=== PATIENT | male | born 1980 | race Caucasian/White ===

== ENCOUNTER → 2018-05-12 08:22 | Outpatient (CLI) | payer OTHER, SELFPAY ==
--- NOTE | 2018-05-12 | DI.ECHO.S_ITS ---
[facility] +---------+ [facility] +---------+ : : [address] : : : : [id number] : : : : Phone: [phone]+ Echocardiogram Report + + :Name: MAXIMO LEE Study Date: 05/12/2018 Height: 70 in : :[facility] Exam Location: [facility] Weight: 220 lb : : Gender: Male BSA: 2.2 m2 : :: 1980 Age: 37 yrs BP: 120/85 mmHg: :Reason For Study: Chest pain/ History of aortic valve repair : : Performed By: Kathrine Page : :Referring: EMELY MASCORRO : + + Interpretation Summary The ejection fraction is estimated to be 60-65%. The aortic valve is bicuspid. There is no aortic valve stenosis. No aortic regurgitation is present. Procedure: A two-dimensional transthoracic echocardiogram with color flow and Doppler was performed. The study quality was technically adequate. There is no prior echocardiogram noted for this patient. The heart rate ranged between 44-62 bpm during the study. Left Ventricle: The left ventricle is normal in size, wall thickness, and systolic function without any focal wall motion abnormalities. The ejection fraction is estimated to be 60-65%. There are no focal wall motion abnormalities. Right Ventricle: The right ventricle is normal in size and function. Atria: Both atria are normal in size. There is no Doppler evidence for an interatrial shunt. Mitral Valve: There is a flat closure plane of the the mitral valve leaflets. There is trace mitral regurgitation. Aortic Valve: The aortic valve is bicuspid. The aortic valve opens well. There is no aortic valve stenosis. No aortic regurgitation is present. Tricuspid Valve: The tricuspid valve is normal in structure and function. There is a trace or physiologic amount of tricuspid regurgitation. Pulmonary artery pressures cannot be estimated because of the lack of a measurable TR jet velocity. Pulmonic Valve: The pulmonic valve is not well visualized. There is a trace or physiologic amount of pulmonic regurgitation. Great Vessels: The aortic root is mildly dilated. The ascending aorta is normal in size. The aortic arch is normal in size. The pulmonary artery is not well visualized, but is probably normal size. The IVC is of normal diameter and collapses greater than 50% with a sniff. This suggests a low right atrial pressure of 3 mm Hg. Pericardium/ Pleura There is no pericardial effusion. There is no pleural effusion. MMode/2D Measurements & Calculations LVIDd: 4.8 cm LVOT diam: 2.1 cm LVIDs: 3.1 cm Ao root diam: 3.9 cm FS: 35.7 % asc Aorta Diam: 3.0 cm EPSS: 0.16 cm Ao Arch Diam (Prox Trans): 3.1 cm IVSd: 0.79 cm LVPWd: 0.91 cm LV burton. diameter/BSA (cm/m^2): 2.2 LV sys. diameter/BSA (cm/m^2): 1.4 LA A2 area: 20.8 cm2 RA long axis: 4.5 cm LA A4 area: 18.6 cm2 RA area: 15.4 cm2 LA length (vol): 5.7 cm RA vol: 44.6 ml LA vol: 57.5 ml RA : 20.5 ml/m2 LA vol index: 26.5 ml/m2 RVD1 (basal): 4.3 cm TAPSE: 3.0 cm Doppler Measurements & Calculations Ao V2 max: 169.5 cm/sec LVOT Max Severiano: 109.0 cm/sec Ao V2 mean: 111.5 cm/sec LV V1 max P.8 mmHg Ao max P.5 mmHg LV V1 VTI: 24.0 cm Ao mean P.7 mmHg ANAMIKA(I,D): 2.4 cm2 Ao V2 VTI: 32.8 cm ANAMIKA(V,D): 2.1 cm2 sev ratio: 0.73 ANAMIKA indexed to BSA (cm^2/m^2): 1.1 MV E max severiano: 112.2 cm/sec PA V2 max: 62.6 cm/sec MV A max severiano: 76.5 cm/sec PA V2 mean: 45.2 cm/sec MV E/A: 1.5 PA mean P.88 mmHg Med Peak E' Severiano: 6.9 cm/sec PA Accel Time: 0.13 sec E/E' med: 16.2 Lat Peak E' Severiano: 9.7 cm/sec E/E' lat: 11.6 E/e' average: 13.9 MV dec time: 0.21 sec MV P1/2t: 65.1 msec MV P1/2t max severiano: 113.0 cm/sec SV(LVOT): 79.2 ml MVA(P1/2t): 3.4 cm2 Reading Physician:05:40 PM
== END ==
PROVIDERS: Visit Provider Physician Assistant
DX: R07.9 Chest pain, unspecified (principal); Z95.2 Presence of prosthetic heart valve
CPT/HCPCS: 93306